=== PATIENT | male | born 1970 | race Caucasian/White ===

== ENCOUNTER 2017-01-15 15:03 | Emergency (ER) | payer SELFPAY ==
[~2017-01-15] VITALS: Ht 185.4 cm; Wt 120.0 kg
[2017-01-15 15:05] VITALS: BP 134/74; PULSE 81; RESP 16; TEMP 97.9; O2SAT 98
--- NOTE | 2017-01-15 15:26 | PD ---
Physical Exam Time Seen by Provider: 15:25 Narrative 46 y/o male with hx of RA presents for evaluation of RLE pain/swelling, cramping sensation. Symptoms have been ongoing for 3-4 weeks, hurts to walk. Vital signs reviewed. Seen at triage desk. Awaiting bed placement. Data Data Last Documented VS Vital Signs Date Time Temp Pulse Resp B/P Pulse Ox O2 Delivery O2 Flow Rate FiO2 01/15/17 15:05 97.9 81 16 134/74 98 MDM Medical Record Reviewed: Yes Supervised Visit with ASHWIN: Beto Demarco Jan 15, 2017 15:26
--- NOTE | 2017-01-15 15:34 | PD ---
HPI Chief Complaint: Pain: Acute or Chronic Time Seen by Provider: 15:33 Travel History International Travel<30 days: No Contact w/Intl Traveler<30days: No Traveled to known affect area: No History of Present Illness HPI 46 year old male with PMH of RA presents to the ED for evaluation of 3 week history of 7/10 right calf and knee pain. Gradual onset. Calf pain described as achy, dull, constant. Knee pain described as "all over." The patient endorses crepitus, giving way, difficulties with flexion 2/2 pain. Denies numbness, tingling, weakness. Denies fever, chills, N/V, CP or SOB. Denies acute injury, endorses recently returning to work/ overuse. Endorses 7 [address] ride just before onset of symptoms. He is a current smoker. Patient states that he has not been treated for RA in over 3 years. PFSH Social History Tobacco Use: Yes Allergies-Medications (Allergen,Severity, Reaction): Coded Allergies: No Known Allergies (Unverified , 01/15/17) Reported Meds & Prescriptions Reported Meds & Active Scripts Active Ibuprofen 800 Mg Tab 800 Mg PO Q8H Review of Systems Except as stated in HPI: all other systems reviewed are Neg Physical Exam Narrative GENERAL: Well-nourished, well-developed obese white male in NAD. SKIN: Focused skin assessment warm/dry. HEAD: Normocephalic. EYES: No scleral icterus. No injection or drainage. NECK: Supple, trachea midline. No JVD or lymphadenopathy. CARDIOVASCULAR: Regular rate and rhythm without murmurs, gallops, or rubs. 2+ DP pulses bilaterally. RESPIRATORY: Breath sounds clear and equal bilaterally. No accessory muscle use. GASTROINTESTINAL: Abdomen soft, non-tender, nondistended. MUSCULOSKELETAL: No cyanosis, or edema. FOCUSED RIGHT LOWER EXTREMITY EXAM: 2+ DP pulse. No warmth, erythema, edema noted. No patellar balloting. + Hohmann sign.+TTP popliteal area. +joint line TTP. 5/5 strength of dorsiflexion, plantar flexion. Extension to 0. Flexion of the knee beyond 90 elicits pain. Negative Varus/ valgus stress testing. Negative anterior drawer testing. Capillary refill less than 2 seconds. Sensation intact to light touch distally. BACK: Nontender without obvious deformity. No CVA tenderness. Data Data Last Documented VS Vital Signs Date Time Temp Pulse Resp B/P Pulse Ox O2 Delivery O2 Flow Rate FiO2 01/15/17 15:05 97.9 81 16 134/74 98 Orders Us Leg Venous Doppler (01/15/17 15:53) Knee, Complete (4vws) (01/15/17 15:53) Ketorolac Inj (Toradol Inj) (01/15/17 16:45) MDM Medical Decision Making Medical Screen Exam Complete: Yes Emergency Medical Condition: Yes Differential Diagnosis OA versus RA versus DVT versus musculoskeletal pain versus internal derangement versus less likely septic arthritis versus other Narrative Course 46 year old male with PMH of RA presents to the ED for evaluation of 3 week history of 7/10 right calf and knee pain. Gradual onset. Calf pain described as achy, dull, constant. Knee pain described as "all over." The patient endorses crepitus, giving way, difficulties with flexion 2/2 pain. Denies numbness, tingling, weakness, fever, chills, N/V, CP or SOB. Denies acute injury, endorses recently returning to work/ overuse. Endorses 7 hour car ride prior to onset of symptoms. He is a current smoker. Patient afebrile, nontoxic appearing on presentation. RLE: 2+ DP pulse. No warmth, erythema, edema noted. No patellar balloting. + Hohmann sign.+TTP popliteal area. +joint line TTP. 5/5 strength of dorsiflexion, plantar flexion. Extension to 0. Flexion of the knee beyond 90 elicits pain. Negative Varus/ valgus stress testing. Negative anterior drawer testing. Capillary refill less than 2 seconds. Sensation intact to light touch distally. Patient was administered 60 mg Toradol IM. XR: moderate joint effusion without fracture per radiology read. US: no evidence of DVT per radiology read. I discussed the results of the radiological studies with the patient. I prescribed a short course of 800mg ibuprofen up to three times a day. I recommended that the patient rest, ice, compress, elevate the extremity as possible, return for worsening symptoms, follow up with the [facility]. The patient indicated understanding of the instructions and is agreeable to the care plan. He is stable and discharged home. Diagnosis Primary Impression: Knee pain, right Qualified Code: M25.561 - Chronic pain of right knee Additional Impression: Joint effusion of knee Referrals: [facility] Patient Instructions: General Instructions, Knee Pain (ED), Musculoskeletal Pain (ED) Additional Instructions: Rest, ice, elevate, compress the extremity. Apply ice no longer than 10-15 minutes per hour a few times a day. 800 mg ibuprofen up to 3 times a day as needed to reduce pain and inflammation. Return to normal, gentle activity as tolerated. No running, jumping activities for the next few weeks. Follow up with the [facility] as discussed. Return to the ED for any urgent or emergent medical condition. Med/Other Pt SpecificInfo: Prescription(s) given Scripts Ibuprofen 800 Mg [id number] Mg PO Q8H #21 TAB Ref 0 Prov:Shaan Christianson MD 01/15/17 Disposition: 01 DISCHARGE HOME Condition: Stable Bri Willard Jan 15, 2017 15:34
--- NOTE | 2017-01-15 16:30 | RADRPT ---
EXAM DATE/TIME: 01/15/2017 16:02 [facility] COMPARISON: No previous studies available for comparison. INDICATIONS : Right knee pain, no known trauma. MEDICAL HISTORY : Rheumatoid arthritis. SURGICAL HISTORY : None. ENCOUNTER: Initial ACUITY: 1 month PAIN SCORE: 6/10 LOCATION: Right knee FINDINGS: Moderate joint effusion is evident. There is no fracture. Patellofemoral compartment is unremarkable. CONCLUSION: Moderate joint effusion without fracture. Fran Uribe MD FACR on January 15, 2017 at 16:21 Board Certified Radiologist. This report was verified electronically.
[2017-01-15] MEDS ORDERED: KETOROLAC TROMETHAMINE 60 MG/2 ML (IM) VIAL IM ONE (16:45)
[2017-01-15] MEDS ORDERED: IBUP800T23 PO ×2 (16:53→17:00)
--- NOTE | 2017-01-15 17:07 | RADRPT ---
EXAM DATE/TIME: 01/15/2017 16:21 [facility] COMPARISON: No previous studies available for comparison. INDICATIONS : Right leg pain. MEDICAL HISTORY : Rheumatoid arthritis. SURGICAL HISTORY : None. ENCOUNTER: Initial ACUITY: 1 day PAIN SCORE: 6/10 LOCATION: Right leg. TECHNIQUE: Venous ultrasound of the leg was performed from the inguinal ligament to the proximal calf. Real-sarabjit e, color Doppler and spectral tracing, compression and augmentation techniques were used. FINDINGS: There is normal compressibility of the deep venous system from the inguinal region to the proximal ca lf. No echogenic clot is seen in the lumen of the common femoral, femoral, popliteal, and posterior tibial veins. There is a normal response of the venous system to proximal and distal augmentation an d respiration. CONCLUSION: No evidence of right lower extremity DVT. Ray Crooks MD on January 15, 2017 at 17:05 Board Certified Radiologist. This report was verified electronically.
[2017-01-15] MEDS ORDERED: LIDOCAINE 1%/EPINEPHrine 1:100,000 SOLN 50 ML VIAL ONE (17:28)
== END 2017-01-15 17:32 | disposition home or self-care (01) ==
LOC: NEPD 15:03
DX: M25.561 Pain in right knee (principal); G89.29 Other chronic pain; M25.461 Effusion, right knee; M79.1 Myalgia; M06.9 Rheumatoid arthritis, unspecified
CPT/HCPCS: 73564; 93971; 96372; 99285; J1885